=== PATIENT | male | born 1940 | race Caucasian/White ===

== ENCOUNTER 2019-10-31 16:05 | Outpatient (CLI) | payer MEDICARE, SELFPAY ==
[2019-10-31 16:37] LABS: Add Urine Microscopic? NO
[2019-10-31 16:46] LABS: Basophils # 0.1 10^3/uL (0.0-0.1); Basophils % 0.8 %; Eosinophils # 0.2 10^3/uL (0.0-0.8); Eosinophils % 2.6 %; Hematocrit 48.3 % (42.0-52.0); Hemoglobin 15.4 g/dL (11.7-16.6); Lymphocytes # 0.9 10^3/uL (0.8-4.8); Lymphocytes % 15.1 %; Mean Corpuscular HGB Conc 31.9 g/dL (30.0-36.0); Mean Corpuscular Hemoglobin 29.7 pg (28.0-34.0); Mean Corpuscular Volume 93.1 fL (80-94); Mean Platelet Volume 12.4 fL (7.4-10.4); Monocytes # 0.8 10^3/uL (0.2-0.9); Monocytes % 12.4 %; Neutrophils # 4.2 10^3/uL (1.8-7.7); Neutrophils % 68.8 %; Nucleated Red Blood Cells % 0 %; Platelet Count 247 10^3/cmm (130-400); Red Blood Count 5.19 10^6/uL (4.1-5.3); Red Cell Distribution Width 13.7 % (12.1-15.1)
[2019-10-31 17:43] LABS: Specific Gravity, Urine 1.015 (1.005-1.030); Urine Appearance Clear (CLEAR); Urine Color Yellow (Yellow); pH Urine 6 (5-7)
[2019-10-31 17:44] LABS: Bilirubin Urine Neg (NEGATIVE); Blood Urine Neg (Negative); Glucose Urine UA Norm (Normal); Ketones Urine Negative (Negative); Leukocyte Esterase Urine Negative (Negative); Nitrate Urine Negative (Negative); Protein Urine Neg (Negative); Urobilinogen Urine Norm (Negative)
[2019-10-31 18:38] LABS: Estmated Average Glucose 151; Hemoglobin A1C 6.9 % (4.0-6.0)
[2019-10-31 19:54] LABS: Prostate Specific Antigen 1.89 ng/mL (0-4); Thyroid Stimulating Hormone 3.27 uIU/mL (0.27-4.20)
[2019-10-31 20:19] LABS: Alanine Aminotransferase 21 U/L (0-41); Albumin Level 4.7 g/dL (3.5-5.2); Alkaline Phosphatase 109 IU/L (40-130); Anion Gap 19.1 (5-19); Aspartate Amino Transferase 19 U/L (0-40); Blood Urea Nitrogen 14 mg/dL (8-23); Calcium 9.4 mg/dL (8.5-10.5); Carbon Dioxide 24 mmol/L (22-29); Chloride 102 mmol/L (98-107); Chol HDL Ratio 5.86 mg/dL (1.0-5.00); Cholesterol 258 mg/dL (0-200); Globulin 2.1 g/dL (1.3-4.6); Glucose 109 mg/dL (65-115); HDL Cholesterol 44 mg/dL (60-100); LDL Cholesterol Calculated 173 mg/dL (50-129); LDL HDL Ratio 3.93 RATIO (0.00-3.22); Osmolality Calculated 287 mOsm/kg (285-295); Potassium 5.1 mmol/L (3.5-5.1); Sodium 140 mmol/L (136-145); Total Bilirubin 0.5 mg/dL (0.15-1.2); Total Protein 6.8 g/dL (6.6-8.7); Triglycerides 204 mg/dL (0-150)
== END 2019-10-31 16:06 | disposition home or self-care (01) ==
PROVIDERS: Visit Provider Nurse Practitioner Family
DX: G57.73 Causalgia of bilateral lower limbs (principal); Z12.5 Encounter for screening for malignant neoplasm of prostate
CPT/HCPCS: 80053; 80061; 81003; 83036; 84153; 84443; 85025

== ENCOUNTER 2019-11-20 14:34 | Outpatient (CLI) | payer MEDICARE, SELFPAY ==
--- NOTE | 2019-11-20 14:46 | CT_ITS ---
WS: [id number] CT HEAD NONCONTRAST HISTORY: DIZZINESS/WEAKNESS TECHNIQUE: Contiguous axial imaging performed through the brain in 2.5 mm imaging. Bone and soft tiss ue windows. Sagittal and coronal reformats reviewed. All CT scans at [facility] use at ast one of these dose optimization techniques: automated exposure control; mA and/or kV adjustment pe r patient size (includes targeted exams where dose is matched to clinical indication); or iterative r econstruction. DLP: 795.11 mGy.cm COMPARISON: None available. No acute intracranial hemorrhage, midline shift or mass effect. Mild atrophy and mild chronic microvascular ischemic disease. Chronic microvascular ischemic disease is most evident in the external capsules. Ventricles: Ventricles are mildly prominent on the basis of atrophy. Sylvian fissures are also promi nent. No inferior displacement of cerebellar tonsils. Paranasal sinuses: As visualized are clear. Mastoid air cells: Well pneumatized. Calvarium and scalp: Skull is intact with no soft tissue edema or swelling. CT/CT head wo con* [id number] IMPRESSION: 1. No acute intracranial hemorrhage or edema. 2. Mild atrophy and chronic microvascular ischemic disease. 3. Mild ventriculomegaly on the basis of atrophy.
== END 2019-11-20 14:35 | disposition home or self-care (01) ==
LOC: RAD 14:40
PROVIDERS: Visit Provider Nurse Practitioner Family
DX: R53.1 Weakness (principal); R42 Dizziness and giddiness; I25.9 Chronic ischemic heart disease, unspecified; G93.89 Other specified disorders of brain
CPT/HCPCS: 70450

== ENCOUNTER 2020-02-13 13:32 | Outpatient (CLI) | payer MEDICARE, SELFPAY ==
--- NOTE | 2020-02-13 13:53 | MR_ITS ---
WS: [id number] MRI HEAD WITH CONTRAST TECHNIQUE: Sagittal T1, T2 axial, T2 axial FLAIR, axial susceptibility weighted imaging, axial diffus ion weighted images, and coronal T2 images were obtained. Pre and post-T1 axial and post T1 coronal i mages. ADC and FSPGR images. CLINICAL INFORMATION: ABNORMALITIES OF GAIT AND MOBILITY COMPARISON: CT November 20, 2019 FINDINGS: No evidence of restricted diffusion to suggest acute ischemia. Ventricular system and basal cisterns are patent. Mild small vessel changes. Moderate parenchymal volume loss. Moderate symmetric atrophy i nvolving the temporal lobes and hippocampal formations. Normal posterior fossa. Normal vascular flow voids at the skull base. No extra-axial fluid collections. No hemosiderin on the susceptibly weighted images. No abnormal gadolinium enhancement. Normal optic chiasm and pituitary infundibulum. Normal dural veno us sinuses. MR/MR head wo/w con [id number] IMPRESSION: 1. No evidence of restricted diffusion to suggest acute ischemia. 2. Mild small vessel changes with moderate parenchymal volume loss. 3. No abnormal intracranial enhancement. 4. No hemosiderin on the susceptibility weighted images. 5. Moderate symmetric atrophy involving the temporal lobes and hippocampal for mations. 6. Ventricular size is unchanged since the prior head CT. 7. No abnormal intracranial enhancement.
== END 2020-02-13 13:33 | disposition home or self-care (01) ==
LOC: RADWPI 13:45
PROVIDERS: PCP Nurse Practitioner Family; Visit Provider Nurse Practitioner Family
DX: R26.89 Other abnormalities of gait and mobility (principal); G31.9 Degenerative disease of nervous system, unspecified
CPT/HCPCS: 70553; A9579

== ENCOUNTER 2020-03-14 09:39 | Outpatient (CLI) | payer MEDICARE, SELFPAY ==
--- NOTE | 2020-03-14 10:06 | MR_ITS ---
WS: [id number] MRI CERVICAL SPINE NONCONTRAST TECHNIQUE: Sagittal T1, T2 and STIR imaging. Axial T2, gradient, and fiesta imaging. CLINICAL INFORMATION: ABNORMALTIES OF GAIT AND MOBILITY COMPARISON: None. FINDINGS: Exaggeration of the normal cervical lordosis. Cord signal is normal. C2-C3: Mild disc osteophytic ridging. Mild right and no significant left foraminal narrowing. Mild fa cet arthropathy. Spinal canal is patent. C3-C4: Disc osteophyte complex with endplate ridging. Mild to moderate central canal stenosis. Modera te left greater than right bony foraminal narrowing. Moderate facet arthropathy. C4-C5: Disc osteophyte complex with endplate ridging. Moderate central canal stenosis. Moderate bilat eral bony foraminal narrowing. Moderate right facet arthropathy. C5-C6: Disc osteophyte complex with endplate ridging. Mild central canal stenosis. Moderate left grea ter than right bony foraminal narrowing. Moderate facet arthropathy. C6-C7: Disc osteophyte complex with endplate ridging. Moderate bilateral bony foraminal narrowing. Sp inal canal is patent. C7-T1: Mild disc osteophytic ridging. Mild left and no significant right foraminal narrowing. Spinal canal is patent. Incidental right T1-2 nerve root sleeve cyst. MR/MR cervical spin wo con* [id number] IMPRESSION: 1. Exaggeration of the normal cervical lordosis. Cord signal is normal. 2. Mild to moderate central canal stenosis C3-C4 C4-C5 and C5-C6. 3. Multilevel bony foraminal narrowing worse at bilateral C4-5, left C5-C6 and bilateral C6-7. 4. Asymmetric advanced facet arthropathy right C4-5.
== END 2020-03-14 09:40 | disposition home or self-care (01) ==
LOC: RADWPI 09:42
PROVIDERS: Family Provider Nurse Practitioner Family; PCP Nurse Practitioner Family; Visit Provider Nurse Practitioner Family
DX: S14.2XXA Injury of nerve root of cervical spine, initial encounter (principal); X58.XXXA Exposure to other specified factors, initial encounter; R26.89 Other abnormalities of gait and mobility; M48.02 Spinal stenosis, cervical region; M47.812 Spondylosis without myelopathy or radiculopathy, cervical region
CPT/HCPCS: 72141

== ENCOUNTER 2020-05-06 15:40 | Outpatient (CLI) | payer MEDICARE, SELFPAY ==
--- NOTE | 2020-05-06 15:49 | MR_ITS ---
WS: [id number] MRI LUMBAR SPINE NONCONTRAST TECHNIQUE: Sagittal T1, T2 and STIR imaging. Axial T1 and T2 imaging. CLINICAL INFORMATION: NEUROGENIC CLAUDICATION WITH L5 RADICULOPATHY COMPARISON: None. FINDINGS: Mild lumbar curve. No acute compression. No high-grade central canal stenosis. Slight retrolisthesis L1 on L2 and L2 on L3. Slight anterolisthesis L4 on L5. L1-L2: Mild disc bulging with slight effacement of ventral thecal sac. Narrowing of the subarticular recess bilaterally. Mild facet arthropathy. Mild right foraminal narrowing. L2-L3: Mild disc bulging and osteophytic ridging. Narrowing of the subarticular recess bilaterally. M oderate facet arthropathy. Mild left greater than right foraminal narrowing. L3-L4: Shallow left subarticular protrusion impinges the traversing left L4 nerve root. Mild central canal stenosis. Left foraminal protrusion with mild left and no significant right foraminal narrowing . L4-L5: Mild disc bulging with mild central canal stenosis. Impingement traversing L5 nerve roots. Mod erate facet arthropathy. Mild left and no significant right foraminal narrowing. Moderate facet arthr opathy. L5-S1: Mild disc bulging and osteophytic ridging. Slight impingement traversing right S1 nerve root. Moderate facet arthropathy with ligament flavum hypertrophy. Mild right greater than left foraminal n arrowing. Right renal cyst 4.2 CM. Smaller right renal cyst measuring 9 mm. MR/MR lumbar spine wo con* [id number] IMPRESSION: 1. Mild lumbar curve. No acute compression. No high-grade central canal stenos is. 2. Mild central canal stenosis L3-L4 and L4-L5. 3. Disc bulging L4-5 with narrowing of the subarticular recess and impingement on the traversing L5 nerve roots bilaterally. 4. Right pericentral disc osteophyte protrusion L5-S1 impinges the traversing right S1 nerve root. Moderate right facet arthropathy with ligament flavum hype rtrophy. 5. Shallow left pericentral protrusion L3-4 impinges the traversing left L4 ne rve root. 6. Mild to moderate foraminal narrowing worse at left L3-4, left L4-5, and rig ht L5-S1.
== END 2020-05-06 15:41 | disposition home or self-care (01) ==
LOC: RADWPI 15:47
PROVIDERS: PCP Nurse Practitioner Family; Visit Provider Psychiatry & Neurology Neurology
DX: M48.062 Spinal stenosis, lumbar region with neurogenic claudication (principal); M51.26 Other intervertebral disc displacement, lumbar region; M47.816 Spondylosis without myelopathy or radiculopathy, lumbar region
CPT/HCPCS: 72148